=== PATIENT | female | born 1955 | race Caucasian/White ===

== ENCOUNTER 2016-08-19 06:39 | Day surgery (SDC) | payer BC, OTHER ==
[~2016-08-19 06:39] MED LIST: Buffered Lidocaine 0.9% SYRIN* 5 ML/SYR SYRINGE INTRADERM ONE
[2016-08-19] MEDS ORDERED: Buffered Lidocaine 0.9% SYRIN* 5 ML/SYR SYRINGE ONE (06:46)
[2016-08-19] MEDS ORDERED: ceFAZolin 2 GM PREMIX(*) 2 GM/50 ML BAG IVPB ONE (06:46)
[2016-08-19] MEDS ORDERED: Bupivacaine 0.25% SDV* 30 ML ONE (07:12)
[2016-08-19] MEDS ORDERED: Albuterol 2.5 MG/3 ML NEB.SOL* (0.083%) ONE (07:33)
[2016-08-19] MEDS ORDERED: Propofol* 10 MG/ML 20 ML BTL IV PUSH ONE (07:42)
[2016-08-19] MEDS ORDERED: fentaNYL* 50 MCG/ML 2 ML VIAL (100 MCG VIAL) ONE (07:42)
[2016-08-19] MEDS ORDERED: Lidocaine 2% PF * 5 ML VIAL ONE (07:42)
[2016-08-19] MEDS ORDERED: Dexamethasone IV* 4 MG/ML 1 ML (4 MG) ONE (08:07)
[2016-08-19] MEDS ORDERED: DiMENhydriNATE IV* 50 MG/ML VIAL IV PUSH PRN (08:24)
[2016-08-19] MEDS ORDERED: fentaNYL* 50 MCG/ML 2 ML VIAL (100 MCG VIAL) IV PRN (08:24)
[2016-08-19] MEDS ORDERED: HYDROcodone/ACETAMIN 5-325 MG* 1 TAB ONE (09:44)
[2016-08-19 10:05] VITALS: BP 123/60
--- NOTE | 2016-08-19 11:24 | OP ---
DATE OF OPERATION: 08/19/16 - [facility] DATE OF : 55 SURGEON: Pablo Barnes MD FULL FASHIONED GARMENT KNITTER: CLAUDIA Sow. An assistant clinical director was needed for the entirety of the procedure to aide with positioning of the arm and retraction. ANESTHESIOLOGIST: Dr. De Los Santos. ANESTHESIA: General. 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 OPERATIVE PROCEDURE: 1. Right thumb carpometacarpal joint interposition arthroplasty with trapeziectomy. 2. Distally based split flexor carpi radialis tendon transfer for thumb suspension and tendon interposition. INDICATIONS: Brittani is a 61-year-old female who has had progressive symptoms related to her basal joint arthritis. She has had an injection and she improved and then it became symptomatic again. ESTIMATED BLOOD LOSS: 5 mL. COMPLICATIONS: None. FINDINGS: As expected. DESCRIPTION OF PROCEDURE: Brittani was seen in the preoperative holding area and the correct site, side and procedure were identified. We came back to the operating room where anesthesia was induced. The arm was prepped and draped in the usual fashion. A formal time-out was performed. I began by exsanguinating the extremity with the Esmarch and the tourniquet was inflated to 250 mmHg. I then made a longitudinal incision from the base of the thumb metacarpal towards the radial styloid staying just dorsal to the first dorsal compartment tendons. Dissection was carried down through the subcutaneous tissue longitudinally and care was taken to preserve the traversing dorsal sensory radial nerve branches. The radial artery was identified and dissected free. There was one small calendering supervisor that was ligated. The venous plexus over the capsule and periosteum was cauterized. I then took the 15 blade and longitudinally incised the capsule and raised subperiosteal and capsular flaps and releasing all the soft tissue off of the trapezium circumferentially. The trapezoid, the scaphotrapezial, and the carpometacarpal joints were all visualized. Once the soft tissue had been released with the [place] blade, I took the rongeur and excised the trapezium in piecemeal fashion. After the trapezium was excised, I then released the soft tissue over the dorsal radial aspect of the base of the thumb metacarpal and then used two sequentially larger drill bits to create a bone tunnel from the dorsal radial aspect of the base of the metacarpal out down to and exiting out the volar ulnar corner of the articular surface of the metacarpal base. The wound was then copiously irrigated. I pulled some traction on the index finger and placed a [place] elevator inside of the scaphotrapezial joint. The articular surfaces there looked good. I then turned my attention to the flexor carpi radialis tendon. A 1-cm transverse incision was made at the distal aspect of the forearm just proximal to the wrist flexion crease and the flexor carpi radialis tendon was then delivered into the wound. Its sheath was released along the course of the tendon. I pulled the tendon up into the wound with a right angle and then split the tendon longitudinally with 15 blade. A 25-gauge wire was delivered between the split and the tendon. I then made two more transverse incisions sequentially more proximal and similarly released the flexor carpi tendon sheath and any tendon adhesions along the course of the tendon. A 25-gauge wire was then delivered sequentially into each of the proximal wounds, completing the split of the tendon, clipped at the musculotendinous junction. The tendon was released proximally. It was delivered into the distal wound. I completed the split down towards the wrist. I then used two 25-gauge wires to shuttle the free end of the FCR tendon down into the thumb base wound and completed the split of the tendon down to the base of the second metacarpal with the tenotomy scissors. The wires were again used to pass the tendon through the drill hole in the base of the thumb metacarpal back around the intact limb of the FCR tendon and then tension was set as the tendon transfer was secured with 3-0 Ethibond suture first sewing all limbs of the tendon together and then the final two [id number] sutures were used to sew intact limb to intact limb. The remainder of the FCR tendon was rolled up into bone and secured with 3-0 Ethibond suture. This was placed as an interposition graft between the deep base of the thumb metacarpal and the distal pole of the scaphoid. The wound was then copiously irrigated. The capsule was closed with 3-0 Ethibond suture. 0.5% Marcaine was infiltrated along all the operative wounds and at the site of the trapeziectomy. The skin was then closed with 4-0 nylon suture. All the wounds had been irrigated prior to closure. The wounds were dressed with Xeroform, 4x4's, sterile Webril and a thumb spica splint was placed leaving the IP joint free. Tourniquet was deflated. The hand pinked up immediately. She was then awoken up and taken to the recovery room in stable condition. [id number] #: [id number] MTDD
== END 2016-08-19 10:12 | disposition home or self-care (01) ==
LOC: OREAST 06:39
PROVIDERS: ATTEND Orthopaedic Surgery Hand Surgery
DX: M18.11 Unilateral primary osteoarthritis of first carpometacarpal joint, right hand (principal); J44.9 Chronic obstructive pulmonary disease, unspecified; E66.9 Obesity, unspecified; Z68.36 Body mass index [BMI] 36.0-36.9, adult
CPT/HCPCS: J0690; J1100; J2704; J3010